=== PATIENT | female | born 1975 | race Caucasian/White ===

== ENCOUNTER 2018-10-28 16:15 | Inpatient (IN) | payer BC ==
[2018-10-28 17:15] VITALS: BMI 36.2
--- NOTE | 2018-10-29 00:56 | HP ---
Scheduled for surgery on 11/01/2018. HISTORY OF PRESENT ILLNESS: Ms. Davila is a 43-year-old white female with ongoing menometrorrhagia and also symptoms of genuine stress incontinence. She was seen back in 06/2018 for evaluation of the menorrhagia and was noted to have enlarged 14-week size uterine fibroid. She also has a significant family history of her mother having ovarian cancer. PAST SURGICAL HISTORY: Notable for previous section, appendectomy, laparoscopic cholecystectomy, breast augmentation, and abdominoplasty. OBSTETRICAL HISTORY: G4, P3, section x2 with previous one vaginal delivery. Pap smear recently in 06/2018 was negative for HPV and normal Pap smear noted. ALLERGIES: PENICILLIN, WHICH CAUSES RASH. PREDNISONE AND SULFA MEDICATIONS. SOCIAL HISTORY: She is a nonsmoker. No excessive alcohol use. No drug use. FAMILY HISTORY: Diabetes in her grandparents, hyperlipidemia in her father. Mother with malignant neoplasm of the ovary, had surgical treatment along with chemo and remains alive and well. She had a maternal and a paternal aunt with cervical cancer. PHYSICAL EXAMINATION: VITAL SIGNS: Blood pressure is 140/86, height 5 feet and 5 inches, weight 221 pounds, BMI 36.8. HEENT: Within normal limits. NECK: Supple. No thyromegaly. CHEST: Clear to auscultation. HEART: Regular rate and rhythm. S1 and S2 heart sounds. ABDOMEN: Soft, nontender, and nondistended. No palpable masses. The patient has had previous abdominoplasty incisions noted. PELVIC: Vulva and vagina had no lesions. Cervix had no lesions. She has asymptomatic grade 1 to 2 rectocele. There was no significant cystocele seen. She does leak urine when coughing and sneezing with hypermobile urethra noted. CV angle about 40 degrees. Uterus is nontender. It is enlarged, 14 week size, bulky, irregular contour, consistent with fibroids. ADNEXA: Nontender with no masses. ASSESSMENT: 1. This is a 43-year-old white female, prior x2 with approximately 14-week uterine fibroids with menometrorrhagia. 2. Genuine stress incontinence. 3. Family history in her mother of ovarian cancer. PLAN: To proceed with robotic DELICIA-BSO along with Advantage Fit TVT with cystoscopy. Risks and benefits of procedure discussed in detail. She is set for surgery on 11/01/2018. Job ID: [id number]
[2018-11-01] MEDS ORDERED: CEFAZOLIN 2 GM/50 ML BAG ONE (06:54)
[2018-11-01] MEDS ORDERED: Gabapentin 300 MG CAP ONE (06:54)
[2018-11-01] MEDS ORDERED: Bupivacaine HCl 0.5%/Epinephrine 1:200,000/PF 30 ml Vial ONE (06:55)
[2018-11-01] MEDS ORDERED: Famotidine/PF 20 mg/2ml Vial ONE (06:55)
[2018-11-01] MEDS ORDERED: Lidocaine 1% w/Epinephrine 1:100K 30 ML VIAL ONE (06:55)
[2018-11-01] MEDS ORDERED: Fentanyl 250 MCG/5 ML VIAL ONE (07:01)
[2018-11-01] MEDS ORDERED: Midazolam HCl 2 mg/2 ml Vial ONE (07:26)
[2018-11-01] MEDS ORDERED: Promethazine HCl 25 MG/ML VIAL IM PRN ×2 (09:52→12:49)
[2018-11-01] MEDS ORDERED: Promethazine HCl 25 MG/ML VIAL SLOW IVP PRN (09:52)
[2018-11-01] MEDS ORDERED: Ondansetron HCl/PF 4 MG/2 ML Vial IVP PRN (09:52)
[2018-11-01] MEDS ORDERED: Furosemide 20 MG/2 ML VIAL ONE (10:51)
[2018-11-01] MEDS ORDERED: Zolpidem Tartrate 5 MG TAB PO PRN (12:49)
[2018-11-01] MEDS ORDERED: diphenhydrAMINE 25 MG CAP PO PRN (12:49)
[2018-11-01] MEDS ORDERED: Acetaminophen 325 MG TAB PO PRN (12:49)
[2018-11-01] MEDS ORDERED: Bisacodyl 10 MG SUPP PR PRN (12:49)
[2018-11-01] MEDS ORDERED: Ondansetron PF 4 MG/2 ML Vial IVP PRN (12:49)
[2018-11-01] MEDS ORDERED: Simethicone Chewable 80 MG TAB PO PRN (12:49)
[2018-11-01] MEDS ORDERED: Fentanyl 100 MCG/2 ML VIAL ONE (14:01)
[2018-11-01] MEDS: Morphine 2 MG/ML SYRINGE SLOW IVP PRN (15:24)
[2018-11-01] MEDS: Lactated Ringer's 1,000 ML IV SCH (15:26)
[2018-11-01] MEDS ORDERED: PHENYLEPHRINE-NS 100 MCG/ML 10 ML SYRINGE ONE (15:33)
[2018-11-01] MEDS ORDERED: Dexamethasone 20 MG/5 ML VIAL ONE (15:33)
[2018-11-01] MEDS ORDERED: PROPOFOL 200 MG/20 ML VIAL ONE (15:33)
[2018-11-01] MEDS ORDERED: Glycopyrrolate 0.2 MG/ML 5 ML SYRINGE ONE (15:33)
[2018-11-01] MEDS ORDERED: Rocuronium Bromide 10 MG/ML (10ML VIAL) ONE (15:33)
[2018-11-01] MEDS ORDERED: ePHEDrine/0.9% NaCl/PF SYRINGE 50 mg/10 ml ONE (15:33)
[2018-11-01] MEDS ORDERED: Ondansetron PF 4 MG/2 ML Vial ONE (15:33)
--- NOTE | 2018-11-01 18:31 | OP ---
DATE OF PROCEDURE: 11/01/2018 PREOPERATIVE DIAGNOSES: 1. A 14-week symptomatic uterine fibroids.Menorrhagia. 2. Genuine stress incontinence. POSTOPERATIVE DIAGNOSES: 1. A 14-week symptomatic uterine fibroids.Menorrhagia. 2. Genuine stress incontinence. 3. Intraoperative correction of right ureteral obstruction due to inadvertent vaginal cuff suture placement. Obstruction released. PROCEDURES PERFORMED: 1. Robotic total laparoscopic hysterectomy and bilateral salpingectomy with EXCITE procedure for tissue removal. 2. Advantage Fit TVT with cystoscopy. 3. Re-exploration with removal of vaginal cuff suture. Right ureteral obstruction released after suture removal. TRUCKER SURGEON: Hannah Luque MD ANESTHESIA: General endotracheal. ESTIMATED BLOOD LOSS: 50 mL. COMPLICATIONS: Noted with right ureteral obstruction corrected intraoperatively from inadvertent vaginal cuff suture placement. Resolved. FINDINGS: 1. Enlarged uterus with a 14-week size bilateral subserosal intramural fibroids noted, largest being on the patient's left side measuring approximately 4 cm. 2. Clear urine present, filled with Lynn catheter in postprocedure. 3. After post Advantage Fit TVT trocar placement and cystoscopy, the bladder showed normal-appearing bladder mucosa with no evidence of mesh placement. Initially, the bilateral ureteral orifices were inspected and effluxed from the left ureter orifice was confirmed. No urine efflux from the right UO noted. 10 mg of Lasix given. Again, copious urine was producing from the left UO and still no right UO efflux of urine noted. A pediatric feeding tube was then placed after 30 degree scope was switched from a 70 degree scope. We were able to pass the pediatric feeding tube stenting the ureter and it appeared to have an obstruction approximately 2.5 to 3 cm from initial entry into the ureter. I felt the obstruction was at the vaginal cuff. 4. After re-exploration with removal of the vaginal cuff line, the right ureter was noted to have copious peristalsis intra-abdominally with laparoscopic view and cystoscopy by Dr. Luque showed copious effluxing of urine from the right ureteral orifice confirming that the obstruction was removed with removal of the vaginal cuff suture. The vaginal cuff was then re-sutured avoiding the vaginal cuff angles under direct visualization. After the vaginal cuff had been closed again, bilateral ureteral orifices were effluxing urine copiously. 5. Clear urine was then draining from the Lynn catheter. 6. I discussed with Urologist, Dr Shonna Carter, and she was in contact via phone.The fact that the ureter was effluxing after suture removal with clear urine, no stent was indicated. Methylene blue had also been given and there was no evidence intraabdominally of spill in abdomen. 7. Bilateral ovaries were normal in appearance. DISPOSITION: Recovery room in stable. DESCRIPTION OF PROCEDURE: The patient previously received informed consent in regard to surgery. She was taken back to the operating room, where she received a general endotracheal anesthetic agent without complications. She was then placed in the dorsal lithotomy position with use of Gaudencio stirrups and prepped and draped in usual sterile fashion. A Lynn catheter was placed at this time. A sidearm speculum was placed in vagina. Uterus sounded to 11 cm. A size 10 cm ADAM uterine manipulator, a 4.0 cm cuff was then placed. The ADAM uterine manipulator was placed. After the ADAM uterine manipulator was placed, attention was then turned to the abdomen. Perspective trocar sites were infiltrated 0.5% Marcaine with epinephrine. A 12 mm supraumbilical incision was made. Veress needle was entered in the abdominal cavity. Peritoneal cavity was distended. The patient's pressure of 15. Then, a size 12 mm trocar was placed and the robotic laparoscope was introduced through trocar sleeve. Additional bilateral lower quadrant 8 mm robotic trocars were placed under laparoscopic guidance along with the right upper quadrant 11 mm port. The patient was placed in deep Trendelenburg and the robot was then placed in Trendelenburg position. It was decided to then the size of the uterus would need performance of the ExCITE procedure for morcellation in a contained bag. The bag was arranged in usual fashion. After the small GelPOINT, Ric retractor was placed in and the fascial incision was extended to 2.5 cm, The bag was then placed in the upper quadrant of the abdomen and then the robot was docked. After the robot was docked, I proceeded to carry out the surgery from the robotic console while my assistants remaining at the bedside. The uterus was elevated from the pelvis. The left fallopian tube was grasped by my assistant professor of psychology and this was coagulated in the mesosalpinx and excised to remove the right upper quadrant assistant professor of psychology port. The left utero-ovarian ligament was coagulated and transected until the left round ligament was reached. It was coagulated and transected. The anterior vesicouterine peritoneal reflection was incised in layering technique. The patient had 2 previous sections and the bladder was distended intermittently to have confirm the location of the bladder, which was well away from the operative dissection site. The left uterine vessels were skeletonized and they were coagulated in the internal cervical os region. Likewise, this was repeated on the right side, where the right fallopian tube was grasped by my assistant professor of psychology. The mesosalpinx coagulated and transected and the tube was removed up in the right upper quadrant assistance port. Serial coagulation of the right utero-ovarian ligament was carried out. It was transected down to the right round ligament. It was coagulated and transected. Serial dissection of the bladder, vesicouterine peritoneum was carried down in layering technique dropping the bladder well past the cervical vaginal angle in a safe manner. Intermittent distention of the bladder was carried out by my assistant professor of psychology confirming that the bladder to be remained intact without injury. The right uterine vessels were then skeletonized. They were coagulated internal cervical os region. Anterior colpotomy was then made starting from 12 to 3 o'clock and 12 to 9 o'clock position and it completed posteriorly from 3 and 6 to 9 o'clock. This released the specimen. The vaginal cuff was then coagulated by bipolar fenestrated cautery to obtain hemostasis. A Stratafix suture was then brought into the operative field by my assistant professor of psychology and the vaginal cuff was closed in full-thickness from the right angle towards the left angle back towards the midline. The pelvis was noted to be hemostatic. Once we had the vaginal cuff closed, then we proceeded to move the prepared aces bag from upper quadrant down into the pelvis in position and proper placement in order to place uterine specimen inside it. Once we had the uterus over the bag in proper alignment, the stay sutures closing the bag in Accordion folding manner were released. The specimen was placed in the bag. The loop of this free string was passed through the previously placed loop on the end side of the bag and then the specimen was secured. The suture attached to the bag was then brought up through the GelPOINT. The robot was undocked. The specimen bag was then removed through the GelPOINT defect side of the fascia. The Ric retractor was placed inside the bag to protect the bag from the morcellation process. A C morcellation technique was then utilized to remove the specimen in morcellating fashion and this was sent for final pathology. Once all tissue was removed from the bag, the aces bag was delivered through the fascial defect. The fascial defect was then closed with a running 0 Vicryl suture. The other trocar sites were then closed with subcuticular 4-0 Monocryl stitch along with dermabond. We then proceeded to carry out the Advantage Fit TVT procedure. The patient's legs were placed in vaginal operative position. The mid portion of the mid urethra was palpated after feeling the location of the Lynn bulb. Allis clamps were placed superior and inferiorly to this. 1% lidocaine with epinephrine was infiltrated of the vaginal mucosa submucosally and a 1.5 cm midline incision over the vaginal mucosa over the mid urethra was made. Metzenbaum scissors were then utilized to transect submucosally in the inter direction of the inferior pubic ramus and symphysis pubis bilaterally puncturing into the retropubic space. The 30 ml of saline on each side of the symphysis pubis in the mons area was infiltrated for water hydrodissection. Midline of the urethra was noted and the suarez have been made 2 cm lateral to the midline just over the crest of the symphysis pubis bone prior to this. The Advantage Fit trocar was assembled. The patient's left side the TVT tape was placed in the previous marked site, the trocar hugging close to the symphysis pubis and poking through the previously marked site. The end of the mesh tape was grasped by my assistant professor of psychology, and the trocar was removed. This was tagged with a Christiane with a Kayleen clamp. Then , this was repeated in likewise fashion on the patient's right side, the curve of the Advantage Fit trocar under symphysis pubis penetrating through the previously marked site. Again, the end of the plastic wing of the mesh tape was grasped by Kayleen clamp by my assistant professor of psychology, and then the trocar was removed. We then proceeded to perform the 70 degree cystoscopy.. The bladder was distended. There was no evidence of any mesh entry or an injury to the bladder noted. The left ureteral orifice was visualized and effluxing urine. We observed the right ureteral orifice for approximately 5 minutes and there was no evidence of urine efflux. 10 mg of Lasix wasgiven. Copious efflux from left UO seen but none from right UO. We changed to a 30 degree scope and then got a pediatric feeding tube. Then, we carefully tried to pass a pediatric feeding tube through the right ureteral orifice. We entered into the right ureteral orifice and then noted obstruction at about 3 cm. I felt that there may be an obstruction of the vaginal cuff line at this site. I had broken scrub and talked with Dr. Shonna Carter from Urology Service and told her the plan that we were going to re-explore with the robot and released the vaginal cuff line. She agreed with me and my thoughts. If the obstruction on the right ureter was relieved and clear urine was draining, then there was no need of any further assessment by [facility] or stent placement. I then notified the patient's family member in regard to what had occurred by phone. The Lynn catheter was reinserted. We redocked the robot after trocars were placed, and abdomen had been insufflated. Attached bipolar fenestrated cautery and monopolar scissors and I incised the vaginal cuff suture line in its entirety. Sutures were removed. My assistant professor of psychology then proceeded to re-cystoscope the patient and fortunately, the right ureteral orifice was copiously effluxing urine and the left ureteral orifice again was noted to be effluxing urine and confirmed that the ureteral obstruction was removed by removal of the vaginal cuff stitches. I then closed the midportion of the vaginal cuff and avoided the angles of the vaginal cuff, again with a Stratafix under direct visualization. Again, my assistant professor of psychology, performed a cystoscopy and an in both ureteral orifices were effluxing urine copiously. Then, we undocked the robot and removed the trocar sleeves. A deep stitch of the 0 Vicryl was placed in the supraumbilical fascial closing the fascial defects and again the subcuticular stitches were placed to close the trocar site defect. Then, we carried out the tightening of the TVT mesh with a Sexton scissor in the mid urethra to give the appropriate tension line. These were pulled out through the symphysis pubis defects and the tag was cut and the plastic sleeves of the mesh were removed. Hemostasis was confirmed and the anterior vaginal mucosa of the mid urethra closed with a 2-0 Vicryl suture in running continuous fashion. Hemostasis was noted. Again, clear urine was draining from the bladder copiously. The vaginal vault was packed with a moistened Kerlix. The patient was awakened from anesthesia and transferred to recovery room in stable condition. Job ID: [id number] MTDD
[2018-11-01] MEDS: Ketorolac Tromethamine 30 MG/ML VIAL IVP SCH (19:28)
[2018-11-01] MEDS: Ibuprofen 800 MG TAB PO SCH (19:41)
[2018-11-02] MEDS: Ketorolac Tromethamine 30 MG/ML VIAL IVP SCH ×4 (01:18→17:03)
[2018-11-02] MEDS: Lactated Ringer's 1,000 ML IV SCH ×3 (01:23→13:04)
[2018-11-02] MEDS: Morphine 2 MG/ML SYRINGE SLOW IVP PRN (05:25)
[2018-11-02 06:04] LABS: Hemoglobin 12.1 g/dL (12.0-16.0); Mean Corpuscular Hemoglobin 29.4 pg (27.0-31.0); Mean Corpuscular Volume 86.3 fL (78.0-98.0); Mean Platelet Volume 8.3 fL (7.4-10.4); Platelet Count 144 thou/uL (130-400); RBC Distribution Width 12.4 % (11.5-14.5); Red Blood Cell (RBC) Count 4.11 mill/uL (4.20-5.40); White Blood Cell (WBC) Count 7.5 thou/uL (4.8-10.8)
[2018-11-02] MEDS: Ibuprofen 800 MG TAB PO SCH (07:41)
[2018-11-02] MEDS ORDERED: CEFAZOLIN 2 GM/50 ML BAG ONE (13:07)
[2018-11-02] MEDS ORDERED: Fentanyl 250 MCG/5 ML VIAL ONE (13:43)
[2018-11-02] MEDS ORDERED: Glycopyrrolate 0.2 MG/ML 5 ML SYRINGE ONE (13:43)
[2018-11-02] MEDS ORDERED: PROPOFOL 200 MG/20 ML VIAL ONE (13:43)
[2018-11-02] MEDS ORDERED: Rocuronium Bromide 10 MG/ML (10ML VIAL) ONE (13:43)
[2018-11-02] MEDS ORDERED: PHENYLEPHRINE-NS 100 MCG/ML 10 ML SYRINGE ONE (13:43)
[2018-11-02] MEDS ORDERED: Dexamethasone 20 MG/5 ML VIAL ONE (13:43)
[2018-11-02] MEDS ORDERED: Ondansetron PF 4 MG/2 ML Vial ONE (13:45)
[2018-11-02] MEDS ORDERED: Bupivacaine HCl 0.5%/Epinephrine 1:200,000/PF 30 ml Vial ONE (13:48)
[2018-11-02] MEDS ORDERED: Midazolam HCl 2 mg/2 ml Vial ONE ×2 (13:54→14:16)
[2018-11-02] MEDS ORDERED: Fentanyl 100 MCG/2 ML VIAL ONE (14:16)
[2018-11-02] MEDS ORDERED: Ondansetron HCl/PF 4 MG/2 ML Vial IVP PRN (15:26)
[2018-11-02] MEDS ORDERED: Promethazine HCl 25 MG/ML VIAL SLOW IVP PRN (15:26)
[2018-11-02] MEDS ORDERED: Promethazine HCl 25 MG/ML VIAL IM PRN (15:26)
--- NOTE | 2018-11-02 22:39 | OP ---
DATE OF PROCEDURE: 11/02/2018 PREOPERATIVE DIAGNOSES: 1. A 43-year-old white female, postop day one from robotic total laparoscopic hysterectomy with bilateral salpingectomy and Advantage Fit TVT. 2. Inadvertent leaving of ovaries from initial surgery. 3. The patient strongly desired oophorectomy due to her family history of ovarian cancer. POSTOPERATIVE DIAGNOSES: 1. A 43-year-old white female, postop day one from robotic total laparoscopic hysterectomy with bilateral salpingectomy and Advantage Fit TVT. 2. Inadvertent leaving of ovaries from initial surgery. 3. The patient strongly desired oophorectomy due to her family history of ovarian cancer. PROCEDURE PERFORMED: Laparoscopic oophorectomy bilaterally. TOOL AND DIE MAKER APPRENTICE: Nereida Cohen PA-C. ANESTHESIA: General endotracheal. ESTIMATED BLOOD LOSS: Less than 10 mL. COMPLICATIONS: None. FINDINGS: 1. The patient is status post recent robotic TLH and bilateral salpingectomy with normal postoperative findings. 2. Previous pedicle sites dry with no abnormal fluid collection seen. 3. Bilateral ovaries visualized and normal in appearance. PATHOLOGY: Bilateral ovaries. ANTIBIOTICS: 2 g Ancef on-call to OR. DISPOSITION: Recovery room and then back to floor. DESCRIPTION OF PROCEDURE: The patient previously received informed consent and was taken back to the operating room, where she received general endotracheal anesthetic agent. She was then placed in supine position, prepped and draped in usual sterile fashion. Lynn catheter was present in, currently indwelling. Her previous trocar sites were infiltrated in the supraumbilical area. An incision was made over the previous incision site. The Veress needle was entered in the peritoneal cavity. The patient's pressure was less than 5 and the abdomen was insufflated, the patient pressed through 15, which is approximately 4 L of carbon dioxide gas. A size 10-mm trocar was then placed through this incision and a 5 mm camera was placed through the trocar sleeve confirming proper entry. The patient was placed in Trendelenburg and additional 5 mm trocars were placed in bilateral lower quadrants. The ovaries were identified. A 5 mm LigaSure device was then placed through my left lateral port. Then my assistant wrestling coach grasped the right ovary. This ovary was held medially towards the midline. This stretching the right infundibulopelvic ligament away from the pelvic sidewall. The LigaSure device was then placed just next to the ovarian cortex and the IP ligament was coagulated x2 and incised excising the ovary. The ovary was placed in the posterior cul-de-sac. The left ovary was then identified in similar fashion. This again was grasped by my assistant wrestling coach with atraumatic graspers. The ovary again was pulled medially away from the pelvic sidewall and the LigaSure device then was placed right next to the ovarian cortex and the IP ligament again was coagulated and transected. Hemostasis of the pedicle site was confirmed. The specimens were put into the again posterior cul-de-sac. At this time, the 5 mm scope was placed in the right lower quadrant trocar and then a 10-mm Endobag was placed through the umbilical port. The bag was placed down the pelvis and the ovarian specimens were put into the bag and sent. Ovarian specimens were then pulled through the bag intact through the umbilical incision and removed in their entirety. The bag was then also removed at the same time. The trocar site in the umbilicus area was then closed with a running 0 Vicryl suture securing approximation of the fascia. The subcutaneous tissue was irrigated and then the deep stitch of Vicryl was placed in the subcu, pulling the incision together and then a 4-0 Monocryl suture was placed subcuticular along with Dermabond. The lateral trocar sites were closed with 4-0 Monocryl and Dermabond. The surgery was terminated. No anesthetic or surgical complications occurred. Job ID: [id number]
[2018-11-03] MEDS: Ketorolac Tromethamine 30 MG/ML VIAL IVP SCH ×2 (00:10→06:00)
[2018-11-03] MEDS: Lactated Ringer's 1,000 ML IV SCH (06:00)
[2018-11-03] MEDS ORDERED: Estradiol 0.05mg/24 Hour Patch (Weekly) TD SCH (09:00)
[2018-11-03] MEDS ORDERED: Ibuprofen 800 MG TAB PO SCH (09:00)
[2018-11-03] MEDS: Acetaminophen/Codeine 30-300mg Tablet PO PRN ×2 (10:05→17:29)
[2018-11-03 11:36] VITALS: BP 134/83; TEMP 98.3
[2018-11-07] MEDS ORDERED: Ibuprofen 800 MG TAB PO SCH (09:00)
== END 2018-11-03 18:13 | disposition home or self-care (01) | DRG 743 ==
LOC: SURG A 11-01 05:50 → 3SE 11-01 15:00
PROVIDERS: ADMIT Obstetrics & Gynecology; ATTEND Obstetrics & Gynecology
PROC: 0UT94ZZ Resection of Uterus, Percutaneous Endoscopic Approach (ICD-10-PCS; principal; 2018-11-01)
PROC: 0UT74ZZ Resection of Bilateral Fallopian Tubes, Percutaneous Endoscopic Approach (ICD-10-PCS; 2018-11-01)
PROC: 0TQD8ZZ Repair Urethra, Via Natural or Artificial Opening Endoscopic (ICD-10-PCS; 2018-11-01)
PROC: 8E0W4CZ Robotic Assisted Procedure of Trunk Region, Percutaneous Endoscopic Approach (ICD-10-PCS; 2018-11-01)
PROC: 0UT24ZZ Resection of Bilateral Ovaries, Percutaneous Endoscopic Approach (ICD-10-PCS; 2018-11-02)
DX: D25.1 Intramural leiomyoma of uterus (principal); N39.3 Stress incontinence (female) (male); N92.1 Excessive and frequent menstruation with irregular cycle; N13.5 Crossing vessel and stricture of ureter without hydronephrosis
CPT/HCPCS: 36415; 85027; 88307; 96374; C1758; C1781; J0131; J0670; J1100; J1885; J1940; J2001; J2250; J2270; J2405; J2550; J2704; J3010; Q9968; S0028

== ENCOUNTER 2018-10-28 16:51 | Outpatient (CLI) | payer BC ==
[2018-10-28 18:06] LABS: Hemoglobin 13.3 g/dL (12.0-16.0); Mean Corpuscular Hemoglobin 29.5 pg (27.0-31.0); Mean Corpuscular Volume 86.6 fL (78.0-98.0); Mean Platelet Volume 8.2 fL (7.4-10.4); Platelet Count 191 thou/uL (130-400); RBC Distribution Width 12.5 % (11.5-14.5); Red Blood Cell (RBC) Count 4.52 mill/uL (4.20-5.40)
== END 2018-10-28 16:52 | disposition home or self-care (01) ==
LOC: LABBT 16:51
PROVIDERS: ATTEND Obstetrics & Gynecology
DX: Z01.812 Encounter for preprocedural laboratory examination (principal); N39.3 Stress incontinence (female) (male); N92.0 Excessive and frequent menstruation with regular cycle; D21.9 Benign neoplasm of connective and other soft tissue, unspecified
CPT/HCPCS: 85027; 86850; 86900; 86901

== ENCOUNTER 2018-12-22 07:55 | Outpatient (CLI) | payer BC ==
--- NOTE | 2018-12-22 10:42 | ULT ---
RIGHT BREAST ULTRASOUND: HISTORY: Abnormal mammogram of 12/13/2018 from an outside facility. FINDINGS: Sonographic evaluation of the 10 o'clock position of the right breast demonstrates a well circumscrib ed, smoothly marginated, oval, nonshadowing, hypoechoic solid mass, 2 cm from the nipple, measuring 1 .5 x 1.3 x 0.6 cm, corresponding to the finding on the mammogram. 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 A 6-month follow-up ultrasound is recommended, if the diagnosis is not confirmed with biop sy. IMPRESSION: BI-RADS category 3-Probably benign findings. Six-month follow-up right breast ultrasound is recommended, if histological confirmation of the diagn osis is not performed. POS: OFF
== END 2018-12-22 07:56 | disposition home or self-care (01) ==
LOC: BICULT 07:55
PROVIDERS: ATTEND Obstetrics & Gynecology
DX: R92.8 Other abnormal and inconclusive findings on diagnostic imaging of breast (principal)

== ENCOUNTER 2020-11-24 08:11 | Emergency (ER) | payer BC, OTHER, SELFPAY ==
[2020-11-24] MEDS ORDERED: Fentanyl 100 MCG/2 ML VIAL ONE ×2 (08:15→09:45)
[2020-11-24] MEDS ORDERED: Ondansetron PF 4 MG/2 ML Vial ONE (08:16)
[2020-11-24] MEDS ORDERED: Ketorolac Tromethamine 30 MG/ML VIAL ONE (08:16)
[2020-11-24 08:49] LABS: #Eosinphils 0.1 thou/uL (0.0-0.7); #Lymphocytes 1.4 thou/uL (1.20-3.40); #Monocytes 0.6 thou/uL (0.11-0.59); #Neutrophils 5.3 thou/uL (1.40-6.50); %Basophils 0.5 % (0.0-1.0); %Eosinophils 1.5 % (0.0-10.0); Mean Corpuscular HGB CONC 33.4 g/dL (32.0-36.0); Mean Corpuscular Hemoglobin 31.1 pg (27.0-31.0); Mean Platelet Volume 8.2 fL (7.4-10.4); Platelet Count 191 thou/uL (130-400); RBC Distribution Width 11.6 % (11.5-14.5); Red Blood Cell (RBC) Count 4.52 mill/uL (4.20-5.40); White Blood Cell (WBC) Count 7.5 thou/uL (4.8-10.8)
[2020-11-24 09:09] LABS: ALT (SGPT) 17 U/L (8-55); AST (SGOT) 22 U/L (5-34); Albumin 4.4 g/dL (3.5-5.0); Alkaline Phosphatase 75 U/L (40-110); Anion Gap 13 mmol/L (10-20); BUN (Urea Nitrogen) 11 mg/dL (7.0-18.7); Bilirubin, Total 0.7 mg/dL (0.2-1.2); Calc. Creatinine Clearance 0 mL/min (70-130); Calcium 9.3 mg/dL (7.8-10.44); Carbon Dioxide 26 mmol/L (22-29); Chloride 103 mmol/L (98-107); Globulin 3.3 g/dL (2.4-3.5); Glucose 102 mg/dL (70-105); Lipase 47 U/L (8-78); Potassium 4.2 mmol/L (3.5-5.1); Protein, Total 7.7 g/dL (6.0-8.3); Sodium 138 mmol/L (136-145)
--- NOTE | 2020-11-24 10:23 | CT ---
CT STONE PROTOCOL: Date: 11/24/2020 HISTORY: Left-sided flank pain, nausea and vomiting. COMPARISON: None. FINDINGS: Absence of oral and IV contrast reduces the sensitivity of exam, particularly for evaluation of solid organs and bowel. The patient is post hysterectomy, appendectomy, and cholecystectomy. The lung bases are clear. No free air or free fluid is seen in the abdomen or pelvis. The small bowel loops are not abnormally dilated. There are vascular calcifications without evidence of aneurysmal d ilatation of the abdominal aorta. There are degenerative changes in the spine. No calculi seen in the kidneys or ureters on either side. There is mild left-sided hydroureteronephro sis secondary to a 2.0 mm calculus at the left UVJ. There is suggestion of retroperitoneal lymphadenopathy at the level of the distal abdominal aorta and aortic bifurcation, which would be better evaluated with a contrast enhanced CT scan (with oral and IV contrast). There is a 12.0 mm low density lesion in the periphery of the spleen. IMPRESSION: 1. 2.0 mm left UVJ calculus with mild left-sided hydroureteronephrosis. 2. Probable retroperitoneal lymphadenopathy. This should be evaluated with contrast enhanced CT scan (IV and oral contrast) on a nonemergent basis. POS: MZA
[2020-11-24 10:43] LABS: Bacteria/HPF None Seen HPF (None Seen); Bilirubin Negative (Negative); Blood, Urine 1+ (Negative); Clarity Turbid (Clear); Glucose, Urine (Dipstick) Normal (Negative); Ketone, Urine Trace mg/dL (Negative); Leukocyte Negative Leu/uL (Negative); Nitrite Negative (Negative); Protein, Urine (Dipstick) 50 mg/dL (Neg-Trace); RBC/HPF Greater than 50 HPF (0-3); Specific Gravity, Urine 1.027 (1.002-1.036); Squamous Epithelial 0-3 HPF (0-3); WBC/HPF 0-3 HPF (0-3); pH, Urine 8.5 (5.0-9.0)
== END 2020-11-24 11:05 | disposition home or self-care (01) ==
LOC: ERS 08:11
DX: N13.2 Hydronephrosis with renal and ureteral calculous obstruction (principal); E78.5 Hyperlipidemia, unspecified; E78.00 Pure hypercholesterolemia, unspecified; I10 Essential (primary) hypertension
CPT/HCPCS: 74176; 80053; 81003; 81015; 83690; 85025; 96374; 96375; 96376; J1885; J2405; J3010